=== PATIENT | female | born 1965 | race Caucasian/White ===

== ENCOUNTER 2018-11-05 13:04 | Emergency (ER) | payer SELFPAY, BC ==
[2018-11-05] MEDS: KETOROLAC 30 MG INJ IM (14:16)
[2018-11-05] MEDS: DEXAMETHASONE 10 MG/ML 1 ML INJ IM (14:16)
== END 2018-11-05 16:02 | disposition home or self-care (01) ==
LOC: FTE 13:04
DX: M54.42 Lumbago with sciatica, left side (principal)
CPT/HCPCS: 81025; 96372; 99284-25